=== PATIENT | female | born 1960 | race Caucasian/White ===

== ENCOUNTER 2016-04-12 06:48 | Emergency (ER) | payer MEDICAID, OTHER ==
[~2016-04-12] VITALS: Ht 177.8 cm; Wt 65.0 kg
[~2016-04-12 06:48] MED LIST: FURO20 PO
[2016-04-12 06:50] VITALS: BP 260/135; PULSE 126; RESP 24; TEMP 98; O2SAT 96
[2016-04-12 07:01] VITALS: BP 273/133; PULSE 132; RESP 28; TEMP 98.2; O2SAT 99
--- NOTE | 2016-04-12 07:10 | PD ---
HPI Chief Complaint: Anxiety Time Seen by Provider: 06:59 Travel History International Travel<30 days: No Contact w/Intl Traveler<30days: No Traveled to known affect area: No History of Present Illness HPI The patient is a 55-year-old female who presents to the emergency department for possible panic attacks. The patient states she has a recent history of stressful events since 2011. The patient recently went to a in [place], developed what she felt was a panic attack or anxiety attack and took a friend's Xanax. The patient's symptoms did improve. However, the patient has had 2 more episodes of sudden onset of anxiety, feels like her whole body is "rapped tight", and feels anxious. The patient denies alcohol use , smokes marijuana occasionally, and possibly could have a history of PTSD. The patient does states she was in previous therapy from a "bad marriage ", and notes very stressful events recently in her life including losing her house. The patient denies any acute chest pain, shortness of breath, nausea, vomiting, or abdominal pain. Symptoms are moderate, possibly exacerbated by recent life events, and alleviated once with Xanax. PFSH Past Medical History Cardiovascular Problems: No Diminished Hearing: No Hepatitis: Yes (C) Hiatal Hernia: No Medical other: No Respiratory: No Thyroid Disease: No ?: Not Menopausal: Yes : 5 Para: 4 : 1 Tubal Ligation: Yes Past Surgical History Section: Yes Cholecystectomy: Yes Gynecologic Surgery: Yes () Pacemaker: No Other Surgery: Yes Social History Alcohol Use: Yes ("very rarely") Tobacco Use: Yes (1ppd) Substance Use: Yes (thc daily) Allergies-Medications (Allergen,Severity, Reaction): Coded Allergies: Codeine (Verified Allergy, Mild, vomit, 04/29/13) Reported Meds & Prescriptions Reported Meds & Active Scripts Active Review of Systems Except as stated in HPI: all other systems reviewed are Neg HENT: No: Lightheadedness Cardiovascular: No: Chest Pain or Discomfort Respiratory: No: Shortness of Breath Gastrointestinal: No: Nausea, Vomiting, Abdominal Pain Musculoskeletal: No: Weakness Neurologic: No: Dizziness Psychiatric: Positive: Anxiety, No: Substance Abuse Physical Exam Narrative GENERAL: Awake, alert, tearful 55-year-old female appears her stated age and appears moderately anxious. SKIN: Warm and dry. The patient has petechia to the hands bilaterally over the extensor surface. HEAD: Atraumatic. Normocephalic. EYES: Pupils equal and round. No scleral icterus. No injection or drainage. ENT: No nasal bleeding or discharge. Mucous membranes pink and moist. NECK: Trachea midline. No JVD. CARDIOVASCULAR: Regular, tachycardic with a heart rate of 120. RESPIRATORY: No accessory muscle use. Clear to auscultation. Breath sounds equal bilaterally. GASTROINTESTINAL: Abdomen soft, non-tender, nondistended. MUSCULOSKELETAL: No obvious deformities. No clubbing. No cyanosis. No edema. NEUROLOGICAL: Awake and alert. No obvious cranial nerve deficits. Motor grossly within normal limits. Normal speech. PSYCHIATRIC: Tearful, anxious. Data Data Last Documented VS Vital Signs Date Time Temp Pulse Resp B/P Pulse Ox O2 Delivery O2 Flow Rate FiO2 04/12/16 08:12 62 18 189/91 100 Room Air 04/12/16 07:01 98.2 Orders Complete Blood Count With Diff (04/12/16 07:05) Comprehensive Metabolic Panel (04/12/16 07:05) Thyroid Stimulating Hormone (04/12/16 07:05) Urinalysis - C+S If Indicated (04/12/16 07:05) Electrocardiogram (04/12/16 07:05) Psych Screen (04/12/16 07:05) Lorazepam Inj (Ativan Inj) (04/12/16 07:15) Drug Screen, Random Urine (04/12/16 07:05) D-Dimer (04/12/16 07:10) Labetalol Inj (Trandate Inj) (04/12/16 07:45) Ct Pulmonary Angiogram (04/12/16 ) Potassium Chloride (Kcl) (04/12/16 09:15) Labs Laboratory Tests Test 04/12/16 04/12/16 07:13 07:40 White Blood Count 1.9 TH/MM3 Red Blood Count 3.40 MIL/MM3 Hemoglobin 12.2 GM/DL Hematocrit 34.9 % Mean Corpuscular Volume 102.8 FL Mean Corpuscular Hemoglobin 35.9 PG Mean Corpuscular Hemoglobin 34.9 % Concent Red Cell Distribution Width 15.7 % Platelet Count 54 TH/MM3 Mean Platelet Volume 8.4 FL Neutrophils (%) (Auto) 55.6 % Lymphocytes (%) (Auto) 31.6 % Monocytes (%) (Auto) 11.6 % Eosinophils (%) (Auto) 0.9 % Basophils (%) (Auto) 0.3 % Neutrophils # (Auto) 1.1 TH/MM3 Lymphocytes # (Auto) 0.6 TH/MM3 Monocytes # (Auto) 0.2 TH/MM3 Eosinophils # (Auto) 0.0 TH/MM3 Basophils # (Auto) 0.0 TH/MM3 CBC Comment AUTO DIFF D-Dimer Quantitative (PE/DVT) 0.85 MG/L FEU Sodium Level 137 MEQ/L Potassium Level 3.1 MEQ/L Chloride Level 104 MEQ/L Carbon Dioxide Level 24.1 MEQ/L Anion Gap 9 MEQ/L Blood Urea Nitrogen 11 MG/DL Creatinine 0.86 MG/DL Estimat Glomerular Filtration 68 ML/MIN Rate Random Glucose 183 MG/DL Calcium Level 8.4 MG/DL Total Bilirubin 1.9 MG/DL Aspartate Amino Transf 226 U/L (AST/SGOT) Alanine Aminotransferase 204 U/L (ALT/SGPT) Alkaline Phosphatase 96 U/L Total Protein 8.3 GM/DL Albumin 3.7 GM/DL Thyroid Stimulating Hormone 4.490 uIU/ML 3rd Gen Urine Color LIGHT-YELLOW Urine Turbidity CLEAR Urine pH 5.5 Urine Specific [place] 1.004 Urine Protein TRACE mg/dL Urine Glucose (UA) NEG mg/dL Urine Ketones NEG mg/dL Urine Occult Blood NEG Urine Nitrite NEG Urine Bilirubin NEG Urine Urobilinogen LESS THAN 2.0 MG/DL Urine Leukocyte Esterase NEG Urine WBC LESS THAN 1 /hpf Urine Squamous Epithelial <1 /hpf Cells Urine Bacteria RARE /hpf Microscopic Urinalysis Comment CULT NOT INDICATED Urine Opiates Screen NEG Urine Barbiturates Screen NEG Urine Amphetamines Screen NEG Urine Benzodiazepines Screen NEG Urine Cocaine Screen NEG Urine Cannabinoids Screen POS [facility] Medical Decision Making Medical Screen Exam Complete: Yes Emergency Medical Condition: Yes Medical Record Reviewed: Yes Interpretation(s) EKG reveals normal sinus rhythm with a rate of 78. Nonspecific ST changes. Laboratory Tests Test 04/12/16 04/12/16 07:13 07:40 White Blood Count 1.9 TH/MM3 Red Blood Count 3.40 MIL/MM3 Hemoglobin 12.2 GM/DL Hematocrit 34.9 % Mean Corpuscular Volume 102.8 FL Mean Corpuscular Hemoglobin 35.9 PG Mean Corpuscular Hemoglobin 34.9 % Concent Red Cell Distribution Width 15.7 % Platelet Count 54 TH/MM3 Mean Platelet Volume 8.4 FL Neutrophils (%) (Auto) 55.6 % Lymphocytes (%) (Auto) 31.6 % Monocytes (%) (Auto) 11.6 % Eosinophils (%) (Auto) 0.9 % Basophils (%) (Auto) 0.3 % Neutrophils # (Auto) 1.1 TH/MM3 Lymphocytes # (Auto) 0.6 TH/MM3 Monocytes # (Auto) 0.2 TH/MM3 Eosinophils # (Auto) 0.0 TH/MM3 Basophils # (Auto) 0.0 TH/MM3 CBC Comment AUTO DIFF D-Dimer Quantitative (PE/DVT) 0.85 MG/L FEU Sodium Level 137 MEQ/L Potassium Level 3.1 MEQ/L Chloride Level 104 MEQ/L Carbon Dioxide Level 24.1 MEQ/L Anion Gap 9 MEQ/L Blood Urea Nitrogen 11 MG/DL Creatinine 0.86 MG/DL Estimat Glomerular Filtration 68 ML/MIN Rate Random Glucose 183 MG/DL Calcium Level 8.4 MG/DL Total Bilirubin 1.9 MG/DL Aspartate Amino Transf 226 U/L (AST/SGOT) Alanine Aminotransferase 204 U/L (ALT/SGPT) Alkaline Phosphatase 96 U/L Total Protein 8.3 GM/DL Albumin 3.7 GM/DL Thyroid Stimulating Hormone 4.490 uIU/ML 3rd Gen Urine Color LIGHT-YELLOW Urine Turbidity CLEAR Urine pH 5.5 Urine Specific [place] 1.004 Urine Protein TRACE mg/dL Urine Glucose (UA) NEG mg/dL Urine Ketones NEG mg/dL Urine Occult Blood NEG Urine Nitrite NEG Urine Bilirubin NEG Urine Urobilinogen LESS THAN 2.0 MG/DL Urine Leukocyte Esterase NEG Urine WBC LESS THAN 1 /hpf Urine Squamous Epithelial <1 /hpf Cells Urine Bacteria RARE /hpf Microscopic Urinalysis Comment CULT NOT INDICATED Urine Opiates Screen NEG Urine Barbiturates Screen NEG Urine Amphetamines Screen NEG Urine Benzodiazepines Screen NEG Urine Cocaine Screen NEG Urine Cannabinoids Screen POS CT pulmonary angiogram reveals no evidence for central pulmonary emboli. Trace ascites. Moderate coronary artery calcifications. Differential Diagnosis Differential diagnosis includes anxiety, panic attack, PTSD, depressive disorder NOS, pulmonary embolism, electrolyte abnormality. Narrative Course IV was established, labs are drawn and sent, and the patient was placed on cardiac telemetry monitoring and continuous pulse oximetry monitoring. EKG was ordered and interpreted. D-dimer was sent to lab. The patient was administered Ativan 1 mg intravenously to assess for improvement of heart rate and blood pressure and anxiety related symptoms. The patient's heart rate did appear to improve with Ativan, however, she still was hypertensive and heart rate was still in the 90s. Therefore, patient was administered labetalol. D- dimer was positive, therefore, CT pulmonary angiogram was ordered to evaluate for possible foreign or embolism as patient does have anxiety/panic-type symptoms with unexplained tachycardia and recent travel. The patient's blood pressure and heart rate improved after Ativan and labetalol. The patient's LFTs are mildly elevated in the 200s. White count was mildly low at 1.9 with low platelets, when I reviewed the EMR, she has a history of leukocytosis, thrombocytopenia, and macrocytosis with MCV of 102/103 in the past. No significant changes. CT pulmonary angiogram is negative for PE. Patient is medically clear to be evaluated by psychiatry. Disposition as per psych. Diagnosis Primary Impression: Panic attack due to exceptional stress Condition: Stable Luke Hurtado MD Apr 12, 2016 07:10
[2016-04-12] MEDS ORDERED: LORazepam 2 MG/ML VIAL IV ONE (07:15)
[2016-04-12 07:33] LABS: AUTOMATED NEUTROPHIL # 1.1 TH/MM3 (1.8-7.7); BASOPHIL % 0.3 % (0.0-2.0); EOSINOPHIL % 0.9 % (0.0-4.0); HEMATOCRIT 34.9 % (35.0-46.0); LYMPH % 31.6 % (9.0-44.0); LYMPHOCYTE # 0.6 TH/MM3 (1.0-4.8); MEAN CELL VOLUME 102.8 FL (80.0-100.0); MEAN CORPUSCULAR HEMOGLOBIN 35.9 PG (27.0-34.0); MEAN CORPUSCULAR HGB CONC 34.9 % (32.0-36.0); MONO % 11.6 % (0.0-8.0); NEUT % 55.6 % (16.0-70.0); PLATELET COUNT 54 TH/MM3 (150-450); RED CELL DISTRIBUTION WIDTH 15.7 % (11.6-17.2); WHITE BLOOD COUNT 1.9 TH/MM3 (4.0-11.0)
[2016-04-12 07:34] VITALS: BP 227/102; PULSE 88; RESP 18; O2SAT 100
[2016-04-12 07:38] LABS: HEMO FLAGS AUTO DIFF
[2016-04-12 07:42] LABS: ANION GAP 9 MEQ/L (5-15); AST (GOT) 226 U/L (15-37); BICARBONATE 24.1 MEQ/L (21.0-32.0); BLOOD UREA NITROGEN 11 MG/DL (7-18); CHLORIDE 104 MEQ/L (98-107); GLOMERULAR FILTRATION RATE 68 ML/MIN (>89); POTASSIUM 3.1 MEQ/L (3.5-5.1); SODIUM (NA) 137 MEQ/L (136-145)
[2016-04-12] MEDS ORDERED: LABETALOL HCL 100 MG/20 ML VIAL IV PUSH ONE (07:45)
[2016-04-12 07:53] LABS: ALKALINE PHOSPHATASE 96 U/L (45-117); ALT (GPT) 204 U/L (10-53); TOTAL BILIRUBIN ADULT 1.9 MG/DL (0.2-1.0)
[2016-04-12 07:59] LABS: BACTERIA, URINE RARE /hpf; BLOOD, URINE NEG (NEG); COMMENT (UR) CULT NOT INDICATED; CULTURE IF INDICATED CULT NOT INDICATED; GLUCOSE,URINE NEG (NEG); KETONE, URINE NEG (NEG); NITRITE,URINE NEG (NEG); PH, URINE 5.5 (5.0-8.5); SQUAMOUS EPITHELIAL CELL URINE <1 /hpf (0-5); URINE COLOR LIGHT-YELLOW (YELLW/STRAW)
[2016-04-12 08:05] LABS: AMPHETAMINE, URINE NEG (NEG); BARBITURATES, URINE NEG (NEG); COCAINE, URINE NEG (NEG)
[2016-04-12 08:12] VITALS: BP 189/91; PULSE 62; RESP 18; O2SAT 100
--- NOTE | 2016-04-12 09:12 | RADRPT ---
EXAM DATE/TIME: 04/12/2016 08:35 [place] COMPARISON: US LEG BILATERAL VENOUS DOPPLER, June 30, 2014, 18:48. INDICATIONS: Tachycardia. IV CONTRAST: 78 cc Omnipaque 350 (iohexol) IV RADIATION DOSE: 23.09 CTDIvol (mGy) MEDICAL HISTORY: Hepatitis C. SURGICAL HISTORY: Tubal ligation. ENCOUNTER: Initial ACUITY: 1 day PAIN SCALE: 0/10 LOCATION: Bilateral chest TECHNIQUE: Volumetric scanning of the chest was performed using a pulmonary embolism protocol MIP images were re constructed. Using automated exposure control and adjustment of the mA and/or kV according to patien t size, radiation dose was kept as low as reasonably achievable to obtain optimal diagnostic quality images. FINDINGS: Heart is minimally enlarged. There is very mild interstitial edema present. There is no pericardial effusion. There are no suspicious lung lesions identified. There is good visualization of central pulmonary emboli. There is no evidence for emboli. There is minimal LAD calcifications. There is trace ascites with a prominent spleen. CONCLUSION: 1. There is no evidence for central pulmonary emboli. 2. Trace ascites. 3. Moderate coronary artery calcifications. Pee Longo MD FACR on April 12, 2016 at 8:59 Board Certified Radiologist. This report was verified electronically.
[2016-04-12 09:14] LABS: BANDS 6 % (0-6); BASOPHILS 1 % (0-2); POLYS (SEG NEUTROPHILS) 48 % (16-70); WBC DIFF SAMPLE 100
[2016-04-12 09:15] LABS: PLATELET ESTIMATE SMEAR LOW (NORMAL); PLATELET MORPHOLOGY NORMAL (NORMAL)
[2016-04-12] MEDS ORDERED: POTASSIUM CHLORIDE 20 MEQ CONTROLLED RELEASE TAB PO ONE (09:15)
[2016-04-12 09:16] LABS: ACANTHOCYTES OCC (NORMAL); SCAN/DIFF FINAL DIFF MANUAL
[2016-04-12 09:53] VITALS: BP 190/100; PULSE 72; RESP 18; O2SAT 99
[2016-04-12] MEDS ORDERED: IOHEXOL 350 MG/ML 10 ML VIAL (for RAD DIAG) IV ONE (11:46)
--- NOTE | 2016-04-12 17:21 | PD ---
History of Present Illness Chief Complaint: Anxiety Time Seen by Provider: 16:45 Travel History International Travel<30 Days: No Contact w/Intl Traveler<30days: No Known affected area: No Legal Status Legal Status: Voluntary History of Present Illness: History of Present Illness HPI The patient is a 55-year-old female with no previous psychiatric history who presents to the emergency department under a voluntary basis for psychiatric evaluation. She reports that for the past 4 weeks she has been experiencing symptoms including feeling overwhelmed and out of control, feeling anxious, crying , not wanting to be touched during these episodes and difficulty with falling asleep. She feels she is having a panic attack and it appears so by her description. She also report that during one of these episodes she was given a Xanax by a friend and it helped her. She reports stressors including having to attend a recent of a friend, her ex attempted suicided recently , financial stressors. EMR is reviewed. She has had no previous contact with [facility] [place]. Her toxicology report is positive for cannabinoids and she admits to smoking marijuana occasionally. Patient is seen in J pod. Awake, alert and oriented female. She is tearful . She denies any hallucinations, delusions or paranoia. Mood is anxious as well as mildly depressed. Her speech is clear and logical. She has been in counseling in the past and wants a referral for counseling as well as possible medication for her anxiety. She lives with her daughter and she reports that her daughter is supportive. Unresolved issues with her siblings after her mother . [facility] Past Medical History Cardiovascular Problems: No Diminished Hearing: No Hepatitis: Yes (C) Hiatal Hernia: No Medical other: No Respiratory: No Thyroid Disease: No ?: Not Menopausal: Yes : 5 Para: 4 : 1 Tubal Ligation: Yes Past Surgical History Section: Yes Cholecystectomy: Yes Gynecologic Surgery: Yes () Pacemaker: No Other Surgery: Yes Psychiatric History Psychiatric History Hx Psychiatric Treatment: Dieudonnetomasa reported. Has been in counseling in the past. History of Inpatient Treatment: No Guns or firearms in home: No Social History female. Lives with her daughter and her grandchildren. Has 4 adult children. Works in a factory. Hx Alcohol Use: Yes ("very rarely") Hx Tobacco Use: Yes (1ppd) Hx Substance Use: Yes (Denies) Substance Use Type: Marijuana Hx of Substance Use Treatment: No Family Psychiatric History None reported Allergies-Medications (Allergen,Severity, Reaction): Coded Allergies: Codeine (Verified Allergy, Mild, vomit, 04/29/13) Reported Meds & Prescriptions Reported Meds & Active Scripts Active Review of Systems Constitutional: DENIES: Diaphoretic episodes, Fatigue, Fever, Weight gain, Weight loss, Chills, Dizziness, Change in appetite, Night Sweats Endocrine: DENIES: Abnorml menstrual pattern, Heat/cold intolerance, Polydipsia , Polyuria, Polyphagia Eyes: COMPLAINS OF: Vision loss Ears, nose, mouth, throat: DENIES: Tinnitus, Hearing loss, Vertigo, Nasal discharge, Oral lesions, Throat pain, Hoarseness, Ear Pain, Running Nose, Epistaxis, Sinus Pain, Toothache, Odynophagia Respiratory: DENIES: Apneas, Cough, Snoring, Wheezing, Hemoptysis, Sputum production, Shortness of breath Cardiovascular: DENIES: Chest pain, Palpitations, Syncope, Dyspnea on Exertion , PND, Lower Extremity Edema, Orthopnea, Claudication Gastrointestinal: DENIES: Abdominal pain, Black stools, Bloody stools, Constipation, Diarrhea, Nausea, Vomiting, Difficulty Swallowing, Anorexia Genitourinary: DENIES: Abnormal vaginal bleeding, Dysmenorrhea, Dyspareunia, Sexual dysfunction, Urinary frequency, Urinary incontinence, Urgency, Hematuria , Dysuria, Nocturia, Vaginal discharge Musculoskeletal: DENIES: Joint pain, Muscle aches, Stiffness, Joint Swelling, Back pain, Neck pain Integumentary: COMPLAINS OF: Abnormal pigmentation (recent dx of skin cancer) Hematologic/lymphatic: DENIES: Bruising, Lymphadenopathy Immunologic/allergic: DENIES: Eczema, Urticaria Neurologic: DENIES: Abnormal gait, Headache, Localized weakness, Paresthesias, Seizures, Speech Problems, Tremor, Poor Balance Psychiatric: COMPLAINS OF: Anxiety Exam Alert: Yes [place]: Person (ox4) Mood: Anxious Affect: Other (tearful) Speech: Clear, Logical Eye Contact: Normal Memory Intact: Comment (not impaired) Hallucinations: Other (negative) Delusions: No Delusion Type: Other Suicidal: Ideation (deneis any) Homicidal: Ideation (deneis any) Insight/Judgement Fair. Not impaired. MDM Medical Decision Making Medical Record Reviewed: Yes Assessment/Plan 55 year old female with no previous history of psychiatric illness who presents on a voluntary basis for evaluation of recent onset of panic attacks. There is no psychosis and no ysabel. No suicidal or homicidal ideation, intent or plan. At this time she does not meet criteria for BA and is requesting discharge. Psychoeducation is provided. I have recommended she follow up with PCP for evaluation of slight elevation in THS. She is referred to outpatient psychiatric care. Vistaril 50 mg po TID is recommended until she can schedule appointment with an outpatient provider. Orders Complete Blood Count With Diff (04/12/16 07:05) Comprehensive Metabolic Panel (04/12/16 07:05) Thyroid Stimulating Hormone (04/12/16 07:05) Urinalysis - C+S If Indicated (04/12/16 07:05) Electrocardiogram (04/12/16 07:05) Psych Screen (04/12/16 07:05) Lorazepam Inj (Ativan Inj) (04/12/16 07:15) Drug Screen, Random Urine (04/12/16 07:05) D-Dimer (04/12/16 07:10) Labetalol Inj (Trandate Inj) (04/12/16 07:45) Ct Pulmonary Angiogram (04/12/16 ) Potassium Chloride (Kcl) (04/12/16 09:15) Iohexol 350 Inj (Omnipaque 350 Inj) (04/12/16 11:46) Diet Regular Basic (04/12/16 Lunch) Diet Regular Basic (04/12/16 Dinner) Results Vital Signs Date Time Temp Pulse Resp B/P Pulse Ox O2 Delivery O2 Flow Rate FiO2 04/12/16 09:53 72 18 190/100 99 Room Air 04/12/16 08:12 62 18 189/91 100 Room Air 04/12/16 07:34 88 18 227/102 100 Room Air 04/12/16 07:01 98.2 132 28 273/133 99 04/12/16 06:50 98.0 126 24 260/135 96 Room Air Laboratory Tests Test 2/27/17 2/27/17 07:13 07:40 White Blood Count 1.9 Red Blood Count 3.40 Hemoglobin 12.2 Hematocrit 34.9 Mean Corpuscular Volume 102.8 Mean Corpuscular Hemoglobin 35.9 Mean Corpuscular Hemoglobin 34.9 Concent Red Cell Distribution Width 15.7 Platelet Count 54 Mean Platelet Volume 8.4 Neutrophils (%) (Auto) 55.6 Lymphocytes (%) (Auto) 31.6 Monocytes (%) (Auto) 11.6 Eosinophils (%) (Auto) 0.9 Basophils (%) (Auto) 0.3 Neutrophils # (Auto) 1.1 Lymphocytes # (Auto) 0.6 Monocytes # (Auto) 0.2 Eosinophils # (Auto) 0.0 Basophils # (Auto) 0.0 CBC Comment AUTO DIFF Differential Total Cells 100 Counted Neutrophils % (Manual) 48 Band Neutrophils % 6 Lymphocytes % 33 Monocytes % 12 Basophils % 1 Neutrophils # (Manual) 1.0 Differential Comment FINAL DIFF MANUAL Platelet Estimate LOW Platelet Morphology Comment NORMAL Acanthocytes OCC D-Dimer Quantitative (PE/DVT) 0.85 Sodium Level 137 Potassium Level 3.1 Chloride Level 104 Carbon Dioxide Level 24.1 Anion Gap 9 Blood Urea Nitrogen 11 Creatinine 0.86 Estimat Glomerular Filtration 68 Rate Random Glucose 183 Calcium Level 8.4 Total Bilirubin 1.9 Aspartate Amino Transf 226 (AST/SGOT) Alanine Aminotransferase 204 (ALT/SGPT) Alkaline Phosphatase 96 Total Protein 8.3 Albumin 3.7 Thyroid Stimulating Hormone 4.490 3rd Gen Urine Color LIGHT-YELLOW Urine Turbidity CLEAR Urine pH 5.5 Urine Specific [place] 1.004 Urine Protein TRACE Urine Glucose (UA) NEG Urine Ketones NEG Urine Occult Blood NEG Urine Nitrite NEG Urine Bilirubin NEG Urine Urobilinogen LESS THAN 2.0 Urine Leukocyte Esterase NEG Urine WBC LESS THAN 1 Urine Squamous Epithelial <1 Cells Urine Bacteria RARE Microscopic Urinalysis Comment CULT NOT INDICATED Urine Opiates Screen NEG Urine Barbiturates Screen NEG Urine Amphetamines Screen NEG Urine Benzodiazepines Screen NEG Urine Cocaine Screen NEG Urine Cannabinoids Screen POS Diagnosis Primary Impression: Panic attack due to exceptional stress Additional Impression: Adjustment disorder Psychiatrically Cleared: Yes Med/ Other Pt Specific Info: Prescription(s) given Prescriptions Hydroxyzine Pamoate (Vistaril)50 Mg Cap50 Mg PO TID #30 CAP Ref 0 Prov:Leighann Child 04/12/16 Disposition: 01 DISCHARGE HOME Condition: Stable Problem Qualifiers Additional Impression: Adjustment disorder Qualified Code: F43.22 - Adjustment disorder with anxious mood Leighann Child Apr 12, 2016 17:21
[2016-04-12] MEDS ORDERED: VIST50CA PO (17:23)
--- NOTE | 2016-04-19 14:57 | EKG ---
Date Performed: 04/12/2016 Time Performed: 07:46:18 PTAGE: 55 years EKG: Sinus rhythm MINIMAL ST DEPRESSION BORDERLINE ECG Compared to prior tracing no significant change PREVIOUS TRACING : 06/30/2014 18.20 DOCTOR: Cresencio Mejia Interpretating Date/Time 04/19/2016 14:56:38
== END 2016-04-12 18:50 | disposition home or self-care (01) ==
LOC: NEPE 06:48 → NEPJ 18:50
DX: F43.0 Acute stress reaction (principal); F43.22 Adjustment disorder with anxiety; R94.31 Abnormal electrocardiogram [ECG] [EKG]; F17.200 Nicotine dependence, unspecified, uncomplicated; Z86.19 Personal history of other infectious and parasitic diseases
CPT/HCPCS: 71275; 80053; 80307; 81001; 84443; 85007; 85027; 85379; 93005; 96374; 96375; 99284; J2060; Q9967